=== PATIENT | male | born 1955 | race Caucasian/White ===

== ENCOUNTER 2017-06-14 17:24 | Emergency (ER) | payer OTHER ==
[2017-06-14 17:36] VITALS: TEMP 98.2
[2017-06-14 18:17] LABS: % IMMATURE GRANULYOCYTES 0.3 % (0.0-1.1); HEMATOCRIT 47.1 % (40.0-51.0); HEMOGLOBIN 16.6 g/dL (13.7-17.5); MEAN CELL HEMOGLOBIN 32.5 pg (27.9-34.1); MEAN CELL HEMOGLOBIN CONCENTR. 35.2 g/dL (32.4-36.7); MEAN CELL VOLUME 92.2 fL (81.5-99.8); MEAN PLATELET VOLUME 9.1 fL (8.7-11.7); PLATELET COUNT 257 10^3/uL (150-400); RED BLOOD CELL COUNT 5.11 10^6/uL (4.40-6.38); RED CELL DISTRIBUTION WIDTH 12.6 % (11.5-15.2)
[2017-06-14 18:18] LABS: ABSOLUTE IMMATURE GRANULOCYTES 0.03 10^3/uL (0.00-0.10); ADD DIFF? NO; ADD MORPH? NO; ADD SCAN? NO; ATYPICAL LYMPHOCYTE FLAG 0 (0-99); FRAGMENT RBC FLAG 0 (0-99); LEFT SHIFT FLG 0 (0-99); LIPEMIA HEMOLYSIS FLAG 90 (0-99); PLATELET CLUMPS FLAG 10 (0-99)
[2017-06-14 18:48] LABS: ALANINE AMINOTRANSFERASE 41 IU/L (21-72); ALBUMIN 4.9 g/dL (3.5-5.0); ALKALINE PHOSPHATASE 51 IU/L (38-126); ANION GAP 14 mEq/L (8-16); ASPARTATE AMINOTRANSFERASE 31 IU/L (17-59); BILIRUBIN,TOTAL 0.9 mg/dL (0.1-1.4); CALCIUM 9.9 mg/dL (8.5-10.4); CARBON DIOXIDE 22 mEq/l (22-31); CHLORIDE 99 mEq/L (97-110); CREATININE 1.1 mg/dL (0.7-1.3); GLOMERULAR FILTRATION RATE > 60; GLUCOSE 85 mg/dL (70-100); POTASSIUM 4.6 mEq/L (3.5-5.2); SODIUM 135 mEq/L (134-144); TOTAL PROTEIN 7.2 g/dL (6.3-8.2)
[2017-06-14] MEDS ORDERED: NS 1,000 ML IV ONE (19:45)
--- NOTE | 2017-06-14 20:02 | EDPHY ---
HPI/HX/ROS/PE/MDM Narrative: CHIEF COMPLAINT: Hypertension, headache HISTORY OF PRESENT ILLNESS: The patient is a 62 y/o male complaining of hypertension and headache. Patient' s prior history of hypertension diagnosed about 8 years ago. However he discontinues his medication and has been able to control his blood pressure with diet and exercise. He states he normally has a reasonable blood pressure around 129/92. He developed a cold two weeks ago that started with a scratchy throat followed by congestion, runny nose, and a productive cough. Last week, he began experiencing a headache that extended into his neck. Today he noticed blurred vision and could feel his pulse pounding in his head. He took his blood pressure and found it to be 185/131. He denies chest pain, shortness of breath, numbness or tingling, or other associated symptoms. Patient does admit that he has recently crushed his Ritalin and snorted it. Last time was yesterday. He denies any other drug use or excessive alcohol consumption. No fever, chills, chest pain, shortness of breath, palpitations, vomiting, diarrhea, urinary complaints, lightheadedness. REVIEW OF SYSTEMS: Aside from elements discussed in the HPI, a comprehensive 10-point review of systems was reviewed and is negative. PAST MEDICAL HISTORY: Hypertension, Ritalin abuse SOCIAL HISTORY: Lives in [place], single, has a daughter VITAL SIGNS: see nurse's notes. Hypertensive. GENERAL: Well-developed, well-nourished, in no acute distress. Somewhat anxious concerning his hypertension. HEENT: Atraumatic Eyes: PERRL, EOMI, no conjunctival injection. Ears: TM clear bilaterally. Nose: No discharge. Mouth: moist mucous membranes. Pharynx: no erythema, no exudates, no swelling, no abscess. Uvula is midline. NECK: Supple, no adenopathy, no meningismus, no tenderness. Negative Kernig's and Brudzinski's. LUNGS: Clear to auscultation bilaterally, no wheezes, rhonchi or rales. CARDIAC: Regular rate and rhythm, no rubs, murmurs or gallops. ABDOMEN: Soft, nontender, bowel sounds normal. BACK: No CVA tenderness. EXTREMITIES: Normal, no edema, FROM. NEURO: Alert and oriented, cranial nerves 2-12 are intact. Motor strength 5/5 throughout. Sensation intact to light touch. SKIN: Warm and dry, no rash. PSYCHIATRIC: Normal mentation, no agitation. Portions of this note were transcribed by a medical genetics director. I personally performed a history, physical exam, medical decision making, and confirmed accuracy of information the transcribed note. ED Course: Study: CT of the head Indication: headache Results: CT scan of the body parts was obtained. The results of the study are normal. He has air fluid levels in the maxillary sinuses, consistent with sinusitis. 12-LEAD EKG: Please see the full report in [facility]. My interpretation: Abnormal nonspecific T-wave inversions in the inferior leads. No priors to compare. The patient is a 62 y/o male complaining of headache, blurred vision, and hypertension. He was previously medicated for hypertension but has had reasonable blood pressures unmedicated for the last few years. He had a cold onset two weeks ago. He then developed a headache last week that extended into his neck. Today he noticed blurred vision and hypertension. He reports that he snorts Ritalin with his last time doing so yesterday. He has no other symptoms. Evaluation for hypertensive urgency was undertaken. Patient has a head CT demonstrating sinusitis but no intracranial hemorrhage or my significant findings related to uncontrolled hypertension. Patient has a abnormal EKG, but no acute ischemic changes. No priors to compare. Negative troponin. Remainder of his laboratory evaluation largely unremarkable. 2039: I informed the patient of the results of his workup. He will be treated with Augmentin for sinusitis. He was carefully counseled to avoid illicit drug use in the future and to avoid abusing his Ritalin. He will follow up with his primary care physician to address his hypertension and the need for chronic antihypertensive use. He feels comfortable being discharged. MDM: After history was obtained, and the physical exam performed, a differential for patient's presenting complaints of headache and hypertension was considered including, but not limited to, hypertensive urgency, medication noncompliance, illicit drug use, withdrawal symptoms, subarachnoid hemorrhage, migraine headache, tension headache and infectious causes such as sinusitis. - Data Points Imaging Results: Impression: No evidence for acute intracranial abnormality. Bilateral maxillary sinusitis. Results called and discussed with Lida Lugo MD, at 2036 hours 14 June 2017. Dictated By: Dwain Montilla MD Imaging: Discussed imaging studies w/ leveling machine operator Radiologist Laboratory Results: Laboratory Results 06/14/17 18:00 06/14/17 18:00 Medications Given: Discontinued Medications Sodium Chloride (Ns) 1,000 mls @ 0 mls/hr IV ONCE ONE PRN Reason: Wide Open Stop: 06/14/17 19:46 Last Admin: 06/14/17 19:45 Dose: 1,000 mls Lorazepam (Ativan Injection) 1 mg IVP EDNOW ONE Stop: 06/14/17 20:06 Last Admin: 06/14/17 20:22 Dose: 1 mg General Time Seen by Provider: 06/14/17 18:19 Initial Vital Signs: Initial Vital Signs Temperature (C) 36.8 C 06/14/17 17:33 Heart Rate 82 06/14/17 17:33 Respiratory Rate 18 06/14/17 17:33 Blood Pressure 175/110 H 06/14/17 17:33 O2 Sat (%) 96 06/14/17 17:33 O2 Delivery Mode Room Air Allergies/Adverse Reactions: No Known Allergies Allergy (Verified 06/14/17 17:30) Home Medications: Medication Instructions Recorded Ritalin 08/22/10 Amoxicillin/Clavulanate Pot 875 mg PO BID #14 tab 06/14/17 [Augmentin 875Mg] Departure - Departure Disposition: Home, Routine, Self-Care Clinical Impression: Sinusitis Qualifiers: Sinusitis location: maxillary Chronicity: acute Recurrence: not specified as recurrent Qualified Code(s): J01.00 - Acute maxillary sinusitis, unspecified Hypertension Qualifiers: Hypertension type: unspecified secondary hypertension Qualified Code(s): I15.9 - Secondary hypertension, unspecified; I15 - Secondary hypertension Headache Qualifiers: Headache type: unspecified Headache chronicity pattern: unspecified pattern Intractability: not intractable Qualified Code(s): R51 - Headache Condition: Good Instructions: Sinusitis (ED), Acute Headache (ED), Hypertension (ED) Additional Instructions: You been given a prescription of Augmentin to treat your sinusitis. Please take this as directed. Please obtained Flonase nasal spray. This is available [id number]. Use as directed. Sinusitis will not clear significantly without the use of decongestants. Please obtain a [id number] decongestant such as Sudafed. Drink plenty of fluid with this decongestant. Decongestants may keep her awake at night. If you are unable to sleep secondary to nasal congestion, consider trying Afrin nasal spray. Do not use Afrin for more than 3 days. Please take Tylenol or ibuprofen for headache pain and facial pain. Mainstay of therapy will be to drink plenty of fluids, control your symptoms with [id number] medications, and get plenty of rest. Return to the emergency department or seek care urgently if you're symptoms are worsening despite the above treatment, if you develop shortness of breath, if you're unable to drink fluids secondary to throat pain or other issues, if you developed, vomiting, diarrhea, or other concerns. You must follow up with a double cut off saw operator or with your primary care physician regarding your abnormal EKG. Referrals: Mary Veras MD [Primary Care Provider] - As per Instructions Leeann Parsons MD [Medical Doctor] - As per Instructions Prescriptions: Amoxicillin/Clavulanate Pot [Augmentin 875Mg] 875 mg PO BID #14 tab Report Scribed for: Lida Lugo Report Scribed by: Jihan Jim Date of Report: 06/14/17 Time of Report: 20:04
--- NOTE | 2017-06-14 20:03 | CPEKG ---
Heart Rate: 80 RR Interval: 750 P-R Interval: 148 QRSD Interval: 96 QT Interval: 392 QTC Interval: 453 P Noble: 57 QRS Noble: 107 T Wave Noble: -14 EKG Severity - ABNORMAL ECG - EKG Impression: SINUS RHYTHM EKG Impression: RIGHT AXIS DEVIATION EKG Impression: NONSPECIFIC T ABNORMALITIES, INFERIOR LEADS Electronically Signed By: Lida Lugo 14-Jun-2017 23:53:37
[2017-06-14] MEDS ORDERED: LORazepam 2 MG/ML INJ IVP ONE (20:05)
[2017-06-14 21:42] VITALS: BP 144/94; PULSE 70; RESP 18; O2SAT 96
== END 2017-06-14 21:47 | disposition home or self-care (01) ==
DX: J01.00 Acute maxillary sinusitis, unspecified (principal); I10 Essential (primary) hypertension
CPT/HCPCS: 96374; J2060